=== PATIENT | male | born 2000 | race Caucasian/White ===

== ENCOUNTER 2022-06-30 17:00 | Emergency (ER) | payer OTHER ==
[~2022-06-30] VITALS: Ht 160 cm; Wt 58.1 kg
[2022-06-30 19:44] VITALS: BP 129/84
== END 2022-06-30 19:44 | disposition home or self-care (01) ==
LOC: ED 17:00
DX: S61.012A Laceration without foreign body of left thumb without damage to nail, initial encounter (principal); W25.XXXA Contact with sharp glass, initial encounter; Z23 Encounter for immunization
CPT/HCPCS: 90471; 90715; 99282-25